=== PATIENT | female | born 1970 | race Two or more races ===

== ENCOUNTER 2024-09-30 06:40 | Day surgery (SDC) | payer OTHER, MEDICAID, SELFPAY ==
[2024-09-30] VITALS (9 sets, daily range): BP systolic 108–154; BP diastolic 64–92; PULSE 61–91; RESP 14–26; TEMP 36.3–36.6; O2SAT 96–100; BMI 26.9
[2024-09-30] MEDS: DiphenhydrAMINE INJ 50 MG/ML VIAL 25 MG IVP (07:33)
[2024-09-30] MEDS: SODIUM CHLORIDE 0.9% 500 ML 500 ML 100 ML IV (07:33)
[2024-09-30] MEDS: fentaNYL CIT INJ 50 mCg/ML AMP 2ML (ASD USE ONLY) IVP (07:35)
[2024-09-30] MEDS: SIMETHICONE 40 MG/0.6 ML ORAL SYRINGE PO (07:35)
[2024-09-30] MEDS: MIDAZOLAM INJ 1 MG/ML VIAL 2 ML (ASD USE ONLY) 2 MG IVP (07:35)
== END 2024-09-30 08:34 | disposition home or self-care (01) ==
PROVIDERS: PCP Family Medicine; Referring Provider Surgery; Visit Provider Surgery
PROC: 0DBE8ZX Excision of Large Intestine, Via Natural or Artificial Opening Endoscopic, Diagnostic (ICD-10-PCS; CPT 45380; principal; 2024-09-30 07:30)
DX: Z12.11 Encounter for screening for malignant neoplasm of colon (principal); K64.1 Second degree hemorrhoids; K57.30 Diverticulosis of large intestine without perforation or abscess without bleeding
CPT/HCPCS: 45378; 81025; J1200; J2250; J3010; J7040; A9270